=== PATIENT | male | born 2000 | race African-American/Black ===

== ENCOUNTER 2024-04-22 12:39 | Emergency (ER) | payer OTHER ==
[~2024-04-22] VITALS: Ht 177.8 cm; Wt 86.6 kg
[2024-04-22] MEDS ORDERED: BACTRIM DS TAB1 EACH PO (13:30)
[2024-04-22 13:57] VITALS: PULSE 71; RESP 16; TEMP 98.2; O2SAT 100
== END 2024-04-22 13:57 | disposition home or self-care (01) ==
LOC: FSED 12:54
DX: L02.414 Cutaneous abscess of left upper limb (principal); M25.422 Effusion, left elbow
CPT/HCPCS: 10061; 99283